=== PATIENT | female | born 1970 | race Caucasian/White ===

== ENCOUNTER → 2020-06-30 | Outpatient (CLI) | payer BC ==
[~2020-06-30] MED LIST: HYDR25TA6 PO
[2020-06-30 15:51] LABS: ALANINE AMINOTRANSFERASE 45 U/L (12-78); ALBUMIN 3.6 g/dL (3.4-5.0); ANION GAP 8 mmol/L (5-15); CALCIUM 8.6 mg/dL (8.5-10.1); CHLORIDE 105 mmol/L (98-107); CREATININE 0.99 mg/dL (0.55-1.02)
[2020-06-30 15:53] LABS: ALKALINE PHOSPHATASE 113 U/L (45-117)
== END | disposition home or self-care (01) ==
LOC: STAR 14:26
PROVIDERS: ATTEND Otolaryngology
DX: Z01.818 Encounter for other preprocedural examination (principal); J32.2 Chronic ethmoidal sinusitis; J33.0 Polyp of nasal cavity
CPT/HCPCS: 36415; 80053

== ENCOUNTER 2020-07-05 06:04 | Day surgery (SDC) | payer BC ==
[~2020-07-05] VITALS: Ht 162.6 cm; Wt 86.0 kg
[2020-07-05] MEDS ORDERED: LACTATED RINGERS 1,000 ML IV SCH (06:40)
[2020-07-05] MEDS ORDERED: CHLORHEXIDINE 15 ML UDC MM STA (06:41)
[2020-07-05] MEDS ORDERED: EPINEPHRINE TOPICAL SOLN 1 MG/ML, 30ML ONE (06:45)
[2020-07-05] MEDS ORDERED: OXYMETAZOLINE NASAL SPRAY 0.05%, 15ML ONE (06:45)
[2020-07-05] MEDS ORDERED: LIDOCAINE 1%-EPI 1:100K, 20ML ONE (06:45)
[2020-07-05] MEDS ORDERED: BACITRACIN OINT 500U/GM, 15 GM ONE (06:45)
[2020-07-05] MEDS ORDERED: FLUORESCEIN SODIUM 500 MG/5 ML ONE (06:45)
[2020-07-05] MEDS ORDERED: BACITRACIN 50,000 UNIT ONE (06:45)
[2020-07-05 07:17] LABS: HCG UR SG 1.013 (1.003-1.030)
[2020-07-05] MEDS ORDERED: FENTANYL PF 100 MCG/2ML ONE ×2 (07:52→10:28)
[2020-07-05] MEDS ORDERED: PROPOFOL 10 MG/ML, 20ML ONE (07:52)
[2020-07-05] MEDS ORDERED: LIDOCAINE-MPF 2% ,5ML ONE (07:52)
[2020-07-05] MEDS ORDERED: SUCCINYLCHOLINE 20 MG/ML, 10ML ONE (07:52)
[2020-07-05] MEDS ORDERED: KETOROLAC 30 MG/1 ML ONE (08:21)
[2020-07-05] MEDS ORDERED: CEFAZOLIN PMX 2GM/50ML IVPB ONE (08:21)
[2020-07-05] MEDS ORDERED: ONDANSETRON 2MG/ML, 2ML ONE (08:21)
[2020-07-05] MEDS ORDERED: DEXAMETHASONE 4 MG/ML, 1ML ONE ×3 (08:31)
[2020-07-05] MEDS ORDERED: OXYcodone 5 MG/5 ML ORAL.SOL UDC PO PRN (09:00)
[2020-07-05] MEDS ORDERED: FENTANYL PF 100 MCG/2ML IV PRN (09:00)
[2020-07-05] MEDS ORDERED: ONDANSETRON 2MG/ML, 2ML IVPush PRN (09:00)
== END 2020-07-05 15:20 | disposition home or self-care (01) ==
LOC: OUT 06:04
PROVIDERS: ATTEND Otolaryngology
DX: J32.2 Chronic ethmoidal sinusitis (principal); Z11.59 Encounter for screening for other viral diseases; J32.0 Chronic maxillary sinusitis; J33.0 Polyp of nasal cavity; I10 Essential (primary) hypertension; Z79.899 Other long term (current) drug therapy; Z88.2 Allergy status to sulfonamides; Z82.49 Family history of ischemic heart disease and other diseases of the circulatory system
CPT/HCPCS: 31253; 31259; 31267; 36415; 81025; 87635; J0330; J0690; J1100; J1885; J2405; J2704; J3010; J3490; J7120

== ENCOUNTER 2020-07-12 05:38 | Day surgery (SDC) | payer BC ==
[~2020-07-12] VITALS: Ht 162.6 cm; Wt 86.3 kg
[2020-07-12 06:21] VITALS: BP 147/101
[2020-07-12] MEDS ORDERED: CHLORHEXIDINE 15 ML UDC MM ONE (06:30)
[2020-07-12] MEDS ORDERED: PROPOFOL 50 ML ONE (07:23)
[2020-07-12] MEDS ORDERED: OXYMETAZOLINE NASAL SPRAY 0.05%,30ML NAS ONE (07:50)
== END 2020-07-12 08:15 | disposition home or self-care (01) ==
LOC: OUT 05:38
PROVIDERS: ATTEND Otolaryngology
DX: J43.8 Other emphysema (principal); Z11.59 Encounter for screening for other viral diseases; Z72.89 Other problems related to lifestyle; Z79.899 Other long term (current) drug therapy; Z82.49 Family history of ischemic heart disease and other diseases of the circulatory system
CPT/HCPCS: 31237; 87635; 88304; J2704

== ENCOUNTER → 2020-10-10 | Outpatient (CLI) | payer BC | END | disposition home or self-care (01) | LOC: CFH 09:13 | PROVIDERS: ATTEND Family Medicine | DX: Z12.31 Encounter for screening mammogram for malignant neoplasm of breast (principal) | CPT/HCPCS: 77063; 77067 ==